=== PATIENT | female | born 1980 | race Caucasian/White ===

== ENCOUNTER 2018-08-08 11:02 | Emergency (ER) | payer BC, OTHER ==
[~2018-08-08] VITALS: Ht 154.9 cm; Wt 98.8 kg
[~2018-08-08 11:02] MED LIST: HYDR-3498 PO; IBUP-1542 PO
[2018-08-08 11:03] VITALS: BP 134/63; PULSE 85; RESP 17; Ht 154.9 cm; Wt 98.8 kg
[2018-08-08] MEDS ORDERED: CIPR7.5D LEFT EAR (11:47)
[2018-08-08] MEDS ORDERED: IBUP-1542 PO (11:47)
--- NOTE | 2018-08-08 11:48 | ERD ---
ER Documentation Chief Complaint Chief Complaint left ear pain with fever x 3 days HPI 38-year-old female presents with pain in her left ear x3 days. She reports the ear pain is 7 out of 10 intensity and localized to her left ear. She reports that she recently went [place] the [place]. She noticed her throat was coming little sore and swollen so she took some amoxicillin tablets that she got herself yesterday that she states has been improving her symptoms. She states that she has felt warm but has not recorded temperature at home. She has not eaten much today because of the pain. She denies any shortness of breath or difficulty breathing. She denies any abdominal pain any nausea, any vomiting, any diarrhea. She denies any sick contacts or recent travel. She denies history of frequent urinary infections. ROS All systems reviewed and are negative except as per history of present illness. Medications Home Meds Active Scripts Ibuprofen* (Motrin*) 600 Mg Tab, 600 MG PO Q6H PRN for PAIN AND OR ELEVATED TEMP, #30 TAB Prov:CARLA APPLE PA-C 08/08/18 Ciprofloxacin Hcl/Dexameth (Ciprodex Otic Suspension) 7.5 Ml Drops.susp, 4 DROP LEFT EAR BID for 7 Days, EA Prov:CARLA APPLE PA-C 08/08/18 Hydrocodone Bit-Acetaminophen* ([place]*) 5-325 Mg Tab, 1 TAB PO Q6 PRN for PAIN, #20 TAB Prov:MEG ZAZUETA NP 09/25/15 Ibuprofen* (Motrin*) 600 Mg Tab, 600 MG PO Q6H PRN for PAIN AND OR ELEVATED TEMP, #30 TAB Prov:MEG ZAZUETA NP 09/25/15 Reported Medications [none] Unknown Strength No Conflict Check 09/25/15 Allergies Allergies: Coded Allergies: No Known Allergy (Unverified , 04/09/15) PMhx/Soc History of Surgery: No Anesthesia Reaction: No Hx Neurological Disorder: No Hx Respiratory Disorders: No Hx Cardiac Disorders: No Hx Psychiatric Problems: No Hx Miscellaneous Medical Probl: No Hx Alcohol Use: No Hx Substance Use: No Hx Tobacco Use: No FmHx Family History: No diabetes Physical Exam Vitals Vital Signs Date Temp Pulse Resp B/P (MAP) Pulse Ox O2 O2 Flow FiO2 Time Delivery Rate 08/08/18 97.5 85 17 134/63 98 11:03 (86) Physical Exam Const: No acute distress Head: Atraumatic Eyes: Normal Conjunctiva ENT: Normal Nose and Mouth. Left ear: Significant tenderness pressing on the tragus, significant tenderness when inserting the speculum inside the left ear. Left ear canal erythematous and inflamed. Mouth: Bel[place] and moist without exudates Neck: Full range of motion. Resp: Clear to auscultation bilaterally Cardio: Regular rate and rhythm, no murmurs Abd: Soft, non tender, non distended. Normal bowel sounds Skin: No petechiae or rashes Back: No midline or flank tenderness Ext: No cyanosis, or edema Neur: Awake and alert Psych: Normal Mood and Affect Procedures/MDM ED COURSE: The patient was stable throughout ED course. I kept the patient informed of laboratory and diagnostic imaging results throughout the ED course. MEDICATIONS GIVEN: [None.] MEDICAL DECISION MAKING: Patient is a 38-year-old female complaining of left ear pain x3 days. She reports that she recently went swimming in [place] few days ago and has been having the ear pain since. On physical exam the ear was tender with palpation of the tragus. Her ear was tender when inserting the speculum inside her ear canal. Said no tenderness to the mastoid process. H&P and other data not c/w emergent process (eg. MICHELL, meningitis, mastoiditis). Vital signs were reviewed. Patient is afebrile. Patient was not hypoxic. Patient was hemodynamically stable. PRESCRIPTION: Motrin, Ciprodex DISCHARGE: At this time, patient is stable for discharge and outpatient management. I have instructed the patient to follow-up with his/her primary care physician in 1-2 days. I have discussed with the patient the possibility of needing to see a specialist for further workup and imaging studies if symptoms persist. I have in structed the patient to promptly return to the ER for any new or worsening symptoms including increased pain, fever, nausea, vomiting, weakness or LOC. The patient and/or family expressed understanding of and agreement with this plan. All questions were answered. Home care instructions were provided. Disclaimer: Inadvertent spelling and grammatical errors are likely due to EHR/di ctation software use and do not reflect on the overall quality of patient care. Also, please note that the electronic time recorded on this note does not necessarily reflect the actual time of the patient encounter. Departure Diagnosis: Primary Impression: Otitis externa Otitis externa type: noninfectious Noninfectious otitis externa type: unspecified noninfectious type Chronicity: acute Laterality: left Qualified Codes: H60.502 - Unspecified acute noninfective otitis externa, left ear Condition: Fair Patient Instructions: External Ear Infection (Adult) Referrals: [facility] YOU HAVE RECEIVED A MEDICAL SCREENING EXAM AND THE RESULTS INDICATE THAT YOU DO NOT HAVE A CONDITION THAT REQUIRES URGENT TREATMENT IN THE EMERGENCY DEPARTMENT. FURTHER EVALUATION AND TREATMENT OF YOUR CONDITION CAN WAIT UNTIL YOU ARE SEEN IN YOUR DOCTORS OFFICE WITHIN THE NEXT 1-2 DAYS. IT IS YOUR RESPONSIBILITY TO MA KE AN APPOINTMENT FOR FOLOW-UP CARE. IF YOU HAVE A PRIMARY DOCTOR --you should call your primary doctor and schedule an appointment IF YOU DO NOT HAVE A PRIMARY DOCTOR YOU CAN CALL OUR PHYSICIAN REFERRAL HOTLINE AT IF YOU CAN NOT AFFORD TO SEE A PHYSICIAN YOU CAN CHOSE FROM THE FOLLOWING [facility] [address] [facility]. [facility] [address] [facility]. [facility] [address] [facility] [facility] [address] [facility] [address] [facility]. [facility]. [address] [facility] YOU HAVE RECEIVED A MEDICAL SCREENING EXAM AND THE RESULTS INDICATE THAT YOU DO NOT HAVE A CONDITION THAT REQUIRES URGENT TREATMENT IN THE EMERGENCY DEPARTMENT. FURTHER EVALUATION AND TREATMENT OF YOUR CONDITION CAN WAIT UNTIL YOU ARE SEEN IN YOUR DOCTORS OFFICE WITHIN THE NEXT 1-2 DAYS. IT IS YOUR RESPONSIBILITY TO MAKE AN APPOINTMENT FOR FOLOW-UP CARE. IF YOU HAVE A PRIMARY DOCTOR --you should call your primary doctor and schedule and appointment IF YOU DO NOT HAVE A PRIMARY DOCTOR YOU CAN CALL OUR PHYSICIAN REFERRAL HOTLINE AT . IF YOU CAN NOT AFFORD TO SEE A PHYSICIAN YOU CAN CHOSE FROM THE FOLLOWING [facility] INSTITUTIONS: [facility] [address] [place] [address] [facility] [address] [place] [address] [facility] + [facility] [address] [place] [address] Additional Instructions: Llame al doctor MAANA y zoraida dior RAMONA PARA DENTRO DE 1-2 LUCIA.Dgale a la secretaria que nosotros le instruimos hacer esta ramona.Avise o llame si cary condicin se empeora antes de la ramona. Regresa aqui si peor o no mejor. CARLA APPLE PA-C Aug 08, 2018 11:48
== END 2018-08-08 12:00 | disposition home or self-care (01) ==
LOC: FTE 11:02
DX: H60.502 Unspecified acute noninfective otitis externa, left ear (principal)
CPT/HCPCS: 99283